=== PATIENT | female | born 1975 | race Hispanic/Latino ===

== ENCOUNTER 2018-03-06 10:08 | Day surgery (SDC) | payer BC, SELFPAY ==
[2018-03-06 11:11] LABS: Absolute Lymphocytes (CBC) 4.3 K/uL (0.7-4.9); Absolute Monocytes 0.7 K/uL (0.1-1.3); Absolute Neutrophil 7.9 K/uL (1.8-8.0); Basophils % 0.3 % (0-1.3); Eosinophils % 0.7 % (0-4.4); Lymphocytes % 32.7 % (15.3-44.8); MCH 30.4 pg (27.0-35.0); MCV 88.4 fL (80-100); MPV 8.4 fL (7.6-11.3); Monocytes % 5.5 % (3.3-12.3); RBC Red Blood Cell Count 4.64 M/uL (3.86-4.86)
[2018-03-06 11:25] LABS: ALT/SGPT 86 U/L (12-78); AST/SGOT 40 U/L (15-37); Albumin 3.2 g/dL (3.4-5.0); Alkaline Phosphatase 111 U/L (45-117); Amylase Level 78 U/L (25-115); BUN Blood Urea Nitrogen 8 mg/dL (7-18); Bicarbonate 29 mmol/L (21-32); Bilirubin Direct < 0.1 mg/dL (0-0.2); Bilirubin Total 0.3 mg/dL (0.2-1.0); Glucose Level 101 mg/dL (74-106); Lipase 140 U/L (73-393); Potassium 3.8 mmol/L (3.5-5.1); Protein, Total 7.6 g/dL (6.4-8.2); Sodium Level 140 mmol/L (136-145)
[2018-03-06] MEDS ORDERED: PIPER/TAZO/NS 3.375gm 3.375 GM/100 ML BAG ONE (11:34)
--- NOTE | 2018-03-06 11:40 | EDPHYS ---
Physician Documentation [facility] Name: Ashley Rivers Age: 42 yrs Sex: Female : 1975 Arrival Date: 03/06/2018 Time: 10:13 Bed 15 Private MD: out of town, doctor ED Physician Mo Pierson HPI: 03/06 11:24 This 42 yrs old Female presents to ER via Ambulatory with complaints of do Abscess. 11:24 The patient presents with an abscess of the left upper quadrant and left lower do quadrant, The patient presents with cellulitis of the left upper quadrant and left lower quadrant, the patient presents with a swollen area of the left upper quadrant and left lower quadrant. Description: The affected area is moderate sized, confluent, erythematous. Onset: The symptoms/episode began/occurred 2 day(s) ago. Possible cause(s): unknown. Associated signs and symptoms: The patient has no apparent associated signs or symptoms. Modifying factors: the symptoms are alleviated by nothing, the symptoms are aggravated by pressure. Severity of symptoms: At their worst the symptoms were moderate, in the emergency department the symptoms are actually worse. The patient has not experienced similar symptoms in the past. 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 tw2 Historical: - Allergies: 12:36 No Known Allergies; tw2 - Home Meds: 12:36 None [Active]; tw2 - PMHx: 12:36 None; tw2 - PSHx: 12:36 ; tw2 13:09 Cholecystectomy; tummy tuck; tw2 - Immunization history:: Adult Immunizations. - Family history:: not pertinent. - Social history:: Smoking status: Patient/guardian denies using tobacco. - Ebola Screening: : Patient denies travel to an Ebola-affected area in the 21 days before illness onset. ROS: 11:24 Constitutional: Negative for fever, chills, and weight loss, Eyes: Negative for injury, do pain, redness, and discharge, ENT: Negative for injury, pain, and discharge, Neck: Negative for injury, pain, and swelling, Cardiovascular: Negative for chest pain, palpitations, and edema, Respiratory: Negative for shortness of breath, cough, wheezing, and pleuritic chest pain, Back: Negative for injury and pain, : Negative for injury, bleeding, discharge, and swelling, MS/Extremity: Negative for injury and deformity, Skin: Negative for injury, rash, and discoloration, Neuro: Negative for headache, weakness, numbness, tingling, and seizure, Psych: Negative for depression, anxiety, suicide ideation, homicidal ideation, and hallucinations, Allergy/Immunology: Negative for hives, rash, and allergies, Endocrine: Negative for neck swelling, polydipsia, polyuria, polyphagia, and marked weight changes, Hematologic/Lymphatic: Negative for swollen nodes, abnormal bleeding, and unusual bruising. 11:24 Abdomen/GI: Positive for abdominal pain, abdominal distension, of the left upper quadrant and left lower quadrant, cellulitis ith 5x4 cm induration. Exam: 11:24 Constitutional: This is a well developed, well nourished patient who is awake, alert, do and in no acute distress. Head/Face: Normocephalic, atraumatic. Eyes: Pupils equal round and reactive to light, extra-ocular motions intact. Lids and lashes normal. Conjunctiva and sclera are non-icteric and not injected. Cornea within normal limits. Periorbital areas with no swelling, redness, or edema. ENT: Nares patent. No nasal discharge, no septal abnormalities noted. Tympanic membranes are normal and external auditory canals are clear. Oropharynx with no redness, swelling, or masses, exudates, or evidence of obstruction, uvula midline. Mucous membranes moist. Neck: Trachea midline, no thyromegaly or masses palpated, and no cervical lymphadenopathy. Supple, full range of motion without nuchal rigidity, or vertebral point tenderness. No Meningismus. Chest/axilla: Normal chest wall appearance and motion. Nontender with no deformity. No lesions are appreciated. Cardiovascular: Regular rate and rhythm with a normal S1 and S2. No gallops, murmurs, or rubs. Normal PMI, no JVD. No pulse deficits. Respiratory: Lungs have equal breath sounds bilaterally, clear to auscultation and percussion. No rales, rhonchi or wheezes noted. No increased work of breathing, no retractions or nasal flaring. Back: No spinal tenderness. No costovertebral tenderness. Full range of motion. Female : Normal external genitalia. MS/ Extremity: Pulses equal, no cyanosis. Neurovascular intact. Full, normal range of motion. Neuro: Awake and alert, GCS 15, oriented to person, place, time, and situation. Cranial nerves II-XII grossly intact. Motor strength 5/5 in all extremities. Sensory grossly intact. Cerebellar exam normal. Normal gait. Psych: Awake, alert, with orientation to person, place and time. Behavior, mood, and affect are within normal limits. 11:24 Abdomen/GI: Inspection: distension, Bowel sounds: normal, Palpation: moderate abdominal tenderness, in the left upper quadrant and left lower quadrant, Liver: no appreciated palpable abnormalities, Hernia: not appreciated, red tender, indurated. Vital Signs: 10:25 BP 139 / 89; Pulse 97; Resp 17; Temp 97.7(O); Pulse Ox 100% on R/A; Weight 95.25 kg tw2 (R); Height 5 ft. 2 in. (157.48 cm); Pain 0/10; 11:12 BP 139 / 92; Pulse 91; Resp 18; Pulse Ox 99% on R/A; dh3 12:35 BP 129 / 84; Pulse 96; Resp 17; Pulse Ox 98% on R/A; tw2 13:32 BP 132 / 92; Pulse 83; Resp 17; Pulse Ox 100% on R/A; tw2 10:25 Body Mass Index 38.41 (95.25 kg, 157.48 cm) tw2 MDM: 10:[address] [facility] 11:31 Data reviewed: vital signs, nurses notes, lab test result(s), EKG, radiologic studies, [facility] CT scan, plain films. 03/06 10:51 Order name: Amylase, Serum; Complete Time: 11:33 03/06 10:51 Order name: Basic Metabolic Panel; Complete Time: 11:33 03/06 10:51 Order name: CBC with Diff; Complete Time: 11:33 tw03/06 10:51 Order name: Creatinine for Radiology; Complete Time: 11:33 2 03/06 10:51 Order name: Hepatic Function; Complete Time: 11:33 03/06 10:51 Order name: Lipase; Complete Time: 11:33 03/06 10:51 Order name: Urine Microscopic Only; Complete Time: 12:31 03/06 11:19 Order name: Troponin I; Complete Time: 12:31 2 03/06 11:21 Order name: Urine Dipstick--Ancillary (enter results); Complete Time: 12:31 mb4 03/06 11:21 Order name: Urine --Ancillary (enter results); Complete Time: 12:31 mb4 03/06 11:45 Order name: Basic Metabolic Panel [facility] 03/06 11:45 Order name: Basic Metabolic Panel [facility] 03/06 11:45 Order name: CBC with Automated Diff [facility] 03/06 11:45 Order name: CBC with Automated Diff [facility] 03/06 10:51 Order name: Urine Test (obtain specimen); Complete Time: 11:10 tw2 03/06 10:51 Order name: IV Saline Lock; Complete Time: 10:51 tw2 03/06 10:51 Order name: Labs collected and sent; Complete Time: 10:51 tw2 03/06 10:51 Order name: Urine Dipstick-Ancillary (obtain specimen); Complete Time: 11:10 tw2 03/06 11:20 Order name: CT Abd/Pelvis - W/Contrast [facility] 03/06 11:28 Order name: EKG; Complete Time: 11:29 tw2 03/06 11:28 Order name: EKG - Nurse/Tech; Complete Time: 12:35 tw2 03/06 11:32 Order name: Chest Single View XRAY [facility] 03/06 11:45 Order name: NPO [facility] 03/06 12:29 Order name: RAD; Complete Time: 12:31 EDMO 03/06 13:11 Order name: CT; Complete Time: 13:51 EDMS Administered Medications: 11:57 Drug: Zosyn 3.375 grams Route: IVPB; Infused Over: 60 mins; Site: right antecubital; tw2 13:10 Follow up: Response: No adverse reaction; IV Status: Completed infusion tw2 Disposition: 03/06/18 11:39 Hospitalization ordered by Anselmo Villaseñor for Observation. Preliminary diagnosis are Cutaneous abscess of abdominal wall, Cellulitis of abdominal wall, Obesity, unspecified. - Bed requested for Telemetry/MedSurg (observation). - Status is Observation. tw2 - Condition is Stable. - Problem is new. - Symptoms have improved. UTI on Admission? No Signatures: Dispatcher [employer] EDMO [place], Lori, RN RN dw Dangelo, Mo, MD MD do Gallego, Swapna, RN RN tw2 Corrections: (The following items were deleted from the chart) 11:45 11:39 Hospitalization Ordered by Anselmo Villaseñor MD for Observation. Preliminary do diagnosis is Cutaneous abscess of abdominal wall; Cellulitis of abdominal wall. Bed requested for Telemetry/MedSurg (observation). Status is Observation. Condition is Stable. Problem is new. Symptoms have improved. UTI on Admission? No. do 12:47 11:45 03/06/2018 11:39 Hospitalization Ordered by Anselmo Villaseñor MD for Observation. dw Preliminary diagnosis is Cutaneous abscess of abdominal wall; Cellulitis of abdominal wall; Obesity, unspecified. Bed requested for Telemetry/MedSurg (observation). Status is Observation. Condition is Stable. Problem is new. Symptoms have improved. UTI on Admission? No. do 13:39 12:47 03/06/2018 11:39 Hospitalization Ordered by Anselmo Villaseñor MD for Observation. tw2 Preliminary diagnosis is Cutaneous abscess of abdominal wall; Cellulitis of abdominal wall; Obesity, unspecified. Bed requested for Telemetry/MedSurg (observation). Status is Observation. Condition is Stable. Problem is new. Symptoms have improved. UTI on Admission? No. dw 14:55 13:39 03/06/2018 11:39 Hospitalization Ordered by Anselmo Villaseñor MD for Observation. tw2 Preliminary diagnosis is Cutaneous abscess of abdominal wall; Cellulitis of abdominal wall; Obesity, unspecified. Bed requested for Telemetry/MedSurg (observation). Status is Observation. Condition is Stable. Problem is new. Symptoms have improved. UTI on Admission? No. tw2
--- NOTE | 2018-03-06 11:40 | ER ---
Nurse's Notes [facility] Name: Ashley Rivers Age: 42 yrs Sex: Female : 1975 Arrival Date: 03/06/2018 Time: 10:13 Bed 15 Private MD: out of town, doctor Diagnosis: Cutaneous abscess of abdominal wall;Cellulitis of abdominal wall;Obesity, unspecified Presentation: 03/06 10:24 Presenting complaint: Patient states: I have an abscess on the inside of my stomach for tw2 about a month now, i finished all my abx but its not better. Transition of care: patient was not received from another setting of care. Onset of symptoms was March 06, 2018. Risk Assessment: Do you want to hurt yourself or someone else? Patient reports no desire to harm self or others. Initial Sepsis Screen: Does the patient meet any 2 criteria? No. Patient's initial sepsis screen is negative. Does the patient have a suspected source of infection? No. Patient's initial sepsis screen is negative. Care prior to arrival: None. 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 tw2 Historical: - Allergies: 12:36 No Known Allergies; tw2 - Home Meds: 12:36 None [Active]; tw2 - PMHx: 12:36 None; tw2 - PSHx: 12:36 ; tw2 13:09 Cholecystectomy; tummy tuck; tw2 - Immunization history:: Adult Immunizations. - Family history:: not pertinent. - Social history:: Smoking status: Patient/guardian denies using tobacco. - Ebola Screening: : Patient denies travel to an Ebola-affected area in the 21 days before illness onset. Screenin:37 Abuse screen: Denies threats or abuse. Nutritional screening: No deficits noted. tw2 Tuberculosis screening: No symptoms or risk factors identified. Fall Risk None identified. Assessment: 10:20 General: Appears in no apparent distress. well groomed, Behavior is calm, cooperative, tw2 appropriate for age. Pain: Denies pain. Neuro: Level of Consciousness is awake, alert, obeys commands, Oriented to person, place, time, situation. Cardiovascular: Denies chest pain, shortness of breath, Heart tones S1 S2 Patient's skin is warm and dry. Respiratory: Airway is patent Respiratory effort is even, unlabored, Respiratory pattern is regular, symmetrical, Breath sounds are clear bilaterally. GI: Abdomen is round non-distended, obese, Bowel sounds present X 4 quads. Reports abscess in stomach Patient currently denies nausea, pain, vomiting. : No signs and/or symptoms were reported regarding the genitourinary system. EENT: No signs and/or symptoms were reported regarding the EENT system. Derm: Skin is intact, is healthy with good turgor, Skin temperature is warm Abscess located on epigastric area, right upper quadrant and left upper quadrant has no drainage, is hot to touch, is red, is raised. Musculoskeletal: Circulation, motion, and sensation intact. Range of motion: intact in all extremities. 11:20 Reassessment: Patient appears in no apparent distress at this time. No changes from tw2 previously documented assessment. Patient and/or family updated on plan of care and expected duration. Pain level reassessed. Patient is alert, oriented x 3, equal unlabored respirations, skin warm/dry/pink. 12:36 Reassessment: Patient appears in no apparent distress at this time. No changes from tw2 previously documented assessment. Patient and/or family updated on plan of care and expected duration. Pain level reassessed. Patient is alert, oriented x 3, equal unlabored respirations, skin warm/dry/pink. 13:33 Reassessment: Patient appears in no apparent distress at this time. No changes from tw2 previously documented assessment. Patient and/or family updated on plan of care and expected duration. Pain level reassessed. Patient is alert, oriented x 3, equal unlabored respirations, skin warm/dry/pink. Vital Signs: 10:25 BP 139 / 89; Pulse 97; Resp 17; Temp 97.7(O); Pulse Ox 100% on R/A; Weight 95.25 kg tw2 (R); Height 5 ft. 2 in. (157.48 cm); Pain 0/10; 11:12 BP 139 / 92; Pulse 91; Resp 18; Pulse Ox 99% on R/A; dh3 12:35 BP 129 / 84; Pulse 96; Resp 17; Pulse Ox 98% on R/A; tw2 13:32 BP 132 / 92; Pulse 83; Resp 17; Pulse Ox 100% on R/A; tw2 10:25 Body Mass Index 38.41 (95.25 kg, 157.48 cm) tw2 ED Course: 10:13 Patient arrived in ED. mr 10:13 out of town, doctor is Private Physician. mr 10:20 Placed in gown. Bed in low position. Pulse ox on. NIBP on. Warm blanket given. tw2 10:21 Mo Pierson MD is Attending Physician. [facility] 10:24 Swapna Gallego RN is Primary Nurse. tw2 10:25 Triage completed. tw2 10:25 Arm band placed on. tw2 11:00 No provider procedures requiring assistance completed. Inserted saline lock: 22 gauge tw2 in right antecubital area, using aseptic technique. Blood collected. 11:10 Urine collected: clean catch specimen, cloudy. [facility] 11:26 Troponin I Sent. tw2 11:37 Anselmo Villaseñor MD is Hospitalizing Provider. [facility] 12:19 X-ray completed. Portable x-ray completed in exam room. Patient tolerated procedure ag1 well. 12:[address] 2 12:[address] completed. Patient tolerated procedure well. Patient moved back from CT. 2 12:56 Awaiting: attempted to call report, was told the nurse is at lunch at this time and tw2 would call me back. 13:28 Patient admitted, IV remains in place. tw2 13:40 Awaiting surgery, Awaiting: OR will come get her in 30 minutues. tw2 Administered Medications: 11:57 Drug: Zosyn 3.375 grams Route: IVPB; Infused Over: 60 mins; Site: right antecubital; tw2 13:10 Follow up: Response: No adverse reaction; IV Status: Completed infusion tw2 Outcome: 11:39 Decision to Hospitalize by Provider. [facility] 13:27 Condition: stable tw2 13:27 Instructed on the need for admit. 13:39 Patient left the ED. tw2 13:40 Admitted to OR tw2 13:40 Instructed on 13:41 Condition: report called to kali Abreu on 2nd floor tw2 14:55 Patient left the ED. tw2 Signatures: Mo Pierson MD MD cha Rivera, Maria mr GarberLisa ag1 Swapna Gallego RN RN tw2 Daxa Marks 2 Mena Law 3 Corrections: (The following items were deleted from the chart) 13:41 13:27 Admitted to Med/surg accompanied by tech, room 206, with chart, Report called to alexia abreu rn tw2
[2018-03-06] MEDS ORDERED: ACETAMINOPHEN 500 MG TAB PO PRN (11:43)
[2018-03-06] MEDS ORDERED: ONDANSETRON 4 MG/2 ML VIAL IV PRN ×2 (11:43→17:12)
[2018-03-06] MEDS ORDERED: MORPHINE 4 MG/ML SYR IV PRN (11:43)
[2018-03-06] MEDS ORDERED: NA CHLORIDE 0.9% 1,000 ML IV SCH (12:00)
[2018-03-06 12:07] LABS: Urine Bacteria <20 /HPF (<20); Urine RBC <5 /HPF (NONE SEEN)
[2018-03-06 12:07] LABS: Urine Blood NEGATIVE (NEG); Urine Glucose NEGATIVE (NEG); Urine Protein NEGATIVE (NEG); Urine pH 6.5 (5.0-7.0)
[2018-03-06 12:08] LABS: Urine Culture Reflex Order NOT NEEDED
--- NOTE | 2018-03-06 12:28 | RAD REPORT ---
EXAM DESCRIPTION: RAD - Chest Single View - 03/06/2018 12:20 pm CLINICAL HISTORY: COUGH Chest pain. COMPARISON: CHEST PA AND LAT 2 VIEW dated 05/28/2010; CHEST SINGLE VIEW dated 04/16/2010; CHEST PA AN D LAT 2 VIEW dated 04/15/2010; CHEST PA AND LAT 2 VIEW dated 04/15/2010 FINDINGS: Portable technique limits examination quality. The lungs are grossly clear. The heart is normal in size. No displaced fractures. IMPRESSION: No acute intrathoracic process suspected.
--- NOTE | 2018-03-06 13:11 | RAD REPORT ---
EXAM DESCRIPTION: CTAbdomen Pelvis W Contrast - 03/06/2018 12:57 pm CLINICAL HISTORY: Abdominal pain. abscess COMPARISON: No comparisons TECHNIQUE: Biphasic CT imaging of the abdomen and pelvis was performed with 100 ml non-ionic IV cont rast. All CT scans are performed using dose optimization technique as appropriate and may include automated exposure control or mA/KV adjustment according to patient size. FINDINGS: The lung bases are clear.Cholecystectomy. The liver, spleen, pancreas, adrenal glands and kidneys are within normal limits. No bowel obstruction, free air, free fluid or intra-abdominal abscess. There are two irregular subcut aneous abscess present along the midline anterior abdominal wall subcutaneous fat. Both appear above the umbilicus; the inferior abscess is approximately 2.7 cm above the umbilicus and just to the right of midline and measures 4.1 x 3.9 cm. The more superior abscess is 5.2 cm above the umbilicus along the midline and measures 4.6 x 3.2 cm. A small tract appears to connect these two abscesses just to t he right of midline. The appendix is normal. No evidence of significant lymphadenopathy. No suspicious bony findings. IMPRESSION: Two relatively small thick walled subcutaneous abscess is are present in the anterior ab dominal wall subcutaneous fat along the midline as detailed. No intra-abdominal extension is seen.
[2018-03-06] MEDS ORDERED: NA CHLORIDE 0.9% 1,000 ML ONE (15:22)
[2018-03-06] MEDS ORDERED: BUPIVACAINE 0.5% PF 10 ML VIAL ONE (16:20)
[2018-03-06] MEDS ORDERED: FENTANYL CITR 100 MCG/2 ML ONE (16:30)
[2018-03-06] MEDS ORDERED: LIDOCAINE 2% MPF 5 ML VIAL ONE (16:30)
[2018-03-06] MEDS ORDERED: ONDANSETRON HCL 40 MG/20 ML VIAL ONE (16:30)
[2018-03-06] MEDS ORDERED: KETOROLAC 30 MG/ML INJ ONE (16:30)
[2018-03-06] MEDS ORDERED: PROPOFOL 200 MG/20 ML VIAL IV ONE (16:30)
[2018-03-06] MEDS ORDERED: DEXAMETHASONE 10 MG/ML VIAL ONE (16:31)
--- NOTE | 2018-03-06 16:34 | P.HP ---
Date of Service: 03/06/18 PC: This 42-year-old female presents emergency room with severe abdominal pain for diagnosis and treatment. HPC: Patient is noticed since he had some pain in her anterior abdominal wall for the last week. Having seen at another facility and was started on some antibiotics. However she has noticed increasing pain and discomfort as well as redness and and warmth in the area. She came to the ER for evaluation PMH: Borderline diabetes PSHx: Previous breast augmentation, tummy tuck SOC: No known allergies, SYS REVIEW: No cough, wheeze, shortness of breath. No chest pain or palpitations. O/E awake alert stable HEENT: Within normal limits Chest: Chest movement equal bilateral ABD: Has an area about of 4 fingers breath above her umbilicus which is red and erythematous. LOCO: Intact DATA: CT scan demonstrates abscess in the anterior abdominal wall x2 IMPRESSION: Abscess of the anterior PLAN: I will to the operating room for incision, drainage, sharp debridement of this large abscess. The risks of this procedure have been discussed. The possibility of bleeding, infection, need for further surgeries and recurrence were outlined. She understands and wants us to proceed. Scar formation was also outlined.
--- NOTE | 2018-03-06 16:59 | P.OP ---
Preoperative diagnosis: Abscess of the anterior abdominal wall x2 Postoperative diagnosis: The same Primary procedure: Incision, drainage, and debridement of anterior abdominal wall abscess x2 Anesthesia: General Estimated blood loss: Less than 10 cc Specimen: None sent Operative Technique: The patient brought the operating room and placed supine on the table general anesthesia, the area of the abdomen was prepped with a DuraPrep solution, and she was draped in usual aseptic manner. Over the area mesh for some on fluctuance, 0.25% Marcaine was injected into this area. A skin incision was now made. This brought down through the skin and subcutaneous tissue. We encounter a large abscess cavity. The material was aspirated from the cavity. There was a secondary 1 that was entered using a hemostat and the 2 cavities were now connected together. The wound was sharply debrided with 11 blade. At this point a 2. Nylon was placed into the wound and brought out more superiorly to keep this whole open and draining during the postoperative period. We also placed a secondary suture of ethyl line so that this wound may be pulled together in a few days time once the infection is under control. At the end of the procedure she was in a stable condition when sent to the recovery room. Needle sponge instrument count were correct. Complications: None Drain(s): Other (2. Nylon) Transferred to: Recovery Room Condition: Good
[2018-03-06] MEDS ORDERED: CODEINE 30MG/APAP 300MG TAB PO PRN (17:12)
[2018-03-06] MEDS ORDERED: PIPER/TAZO/NS 3.375gm 3.375 GM/100 ML BAG IVPB SCH (20:00)
--- NOTE | 2018-03-07 10:40 | EKG ---
Test Date: 2018-03-06 Test Time: 11:41:55 Case Assembler: MARCUS MEASUREMENT RESULTS: Intervals: Rate: 75 MD: 148 QRSD: 90 QT: 382 QTc: 426 Goodwin: P: 19 MD: 148 QRS: 22 T: 26 INTERPRETIVE STATEMENTS: Normal sinus rhythm Cannot rule out Anterior infarct, age undetermined Abnormal ECG No previous ECG available for comparison Electronically Signed On 03-07-18 10:39:27 CDT by Nelson Lees
== END 2018-03-06 18:06 | disposition home or self-care (01) ==
LOC: ER 10:08 → UNDOADMOB 11:41 → ERHOLD 11:41 → OR 12:55 → ERHOLD 13:28 → 2ND 13:28 → OR 18:06
PROVIDERS: ATTEND Surgery
PROC: 0H97XZZ Drainage of Abdomen Skin, External Approach (ICD-10-PCS; principal; 2018-03-06 16:30)
DX: L02.211 Cutaneous abscess of abdominal wall (principal)
CPT/HCPCS: 36415; 71045; 74177; 80048; 80076; 81003; 81015; 81025; 82150; 83690; 84484; 85025; 93005; 96365; 99285; J1100; J2405; J2543; J3010; J7030; Q9967

== ENCOUNTER 2018-11-19 06:35 | Day surgery (SDC) | payer BC ==
[2018-11-19 06:56] LABS: Specific Gravity 1.015 (1.005-1.030)
[2018-11-19] MEDS ORDERED: NA CHLORIDE 0.9% 1,000 ML ONE ×2 (07:01→08:13)
--- NOTE | 2018-11-19 07:14 | P.HP ---
Date of Service: 11/19/18 PC: This 42-year-old female presents for exploration of chronic wound in the upper abdomen. HPC: Patient had a tummy tuck. Since then she has had persistent areas in the upper portion of her abdomen that faster up and drain. This 1 area in particular has had recurrent abscesses. PMH: Diabetes PSHx: Previous tummy tuck SOC: No known allergies SYS REVIEW: No cough, wheeze, shortness of breath. No chest pain or palpitations. Denies any urinary complaints O/E awake alert stable HEENT: Within normal Chest: Clear ABD: Soft, in the upper abdomen there is an area approximately 1.5 cm in size. There appeared to be a slight mass underneath this area. LOCO: Intact DATA: Within normal limits IMPRESSION: Mass in the upper abdomen with recurrent abscess suspect possible stitch abscess PLAN: I will take her to the operating room for exploration of this wound. The risks of this procedure have been discussed. The possibility of bleeding, infection, recurrence and scar formation were outlined. She understands and wants us to proceed. SYS REVIEW: O/E HEENT: Chest: ABD: LOCO: DATA: IMPRESSION: PLAN:
[2018-11-19] MEDS ORDERED: BUPIVACAINE 0.5% PF 10 ML VIAL ONE (07:17)
[2018-11-19] MEDS ORDERED: PROPOFOL 200 MG/20 ML VIAL IV ONE (07:19)
[2018-11-19] MEDS ORDERED: ROCURONIUM 50 MG/5 ML VIAL IV ONE (07:22)
[2018-11-19] MEDS ORDERED: FENTANYL CITR 100 MCG/2 ML ONE (07:22)
[2018-11-19] MEDS ORDERED: MIDAZOLAM HCL 2 MG/2 ML INJ ONE (07:22)
[2018-11-19] MEDS ORDERED: LIDOCAINE 2% MPF 5 ML VIAL ONE (07:22)
[2018-11-19] MEDS ORDERED: DEXAMETHASONE 10 MG/ML VIAL ONE (07:40)
[2018-11-19] MEDS ORDERED: ONDANSETRON 4 MG/2 ML VIAL ONE (07:43)
--- NOTE | 2018-11-19 07:52 | P.OP ---
Preoperative diagnosis: Abdominal wall mass Postoperative diagnosis: Stitch abscess Primary procedure: Exploration of old surgical wound Secondary procedure: Wide excision of surgical scar and removal of suture Anesthesia: General Estimated blood loss: Less than 10 cc Specimen: Sent for histopathology Operative Technique: The patient brought the operating room and placed supine on the table. After the induction of adequate general endotracheal anesthesia, the area of the abdomen was prepped with a DuraPrep solution, she was draped in usual aseptic manner. An elliptical incision was then made around this old scar tissue see the center portion a small area that showed chronic drainage. This plug of tissue was removed from the anterior abdominal wall. At the base to was found to be eating capsulated P so olds permanent suture. This was excise. At this point the wound was inspected to ensure adequate hemostasis. It was approximated using interrupted sutures of PDS. [place] were then used to approximate the skin. At the end of the procedure she was in a stable condition when sent to the recovery room. Needle sponge instrument count were correct. The anterior abdominal wall been injected with 0.25% Marcaine to allow for adequate analgesia in the postoperative period. Complications: None Transferred to: Recovery Room Condition: Good
[2018-11-19] MEDS ORDERED: MEPERIDINE HCL 25 MG/0.5 ML ONE (08:24)
== END 2018-11-19 09:33 | disposition home or self-care (01) ==
LOC: OR 06:35
PROVIDERS: ATTEND Surgery
PROC: 0JB80ZZ Excision of Abdomen Subcutaneous Tissue and Fascia, Open Approach (ICD-10-PCS; principal; 2018-11-19 07:30)
DX: L02.211 Cutaneous abscess of abdominal wall (principal); M79.5 Residual foreign body in soft tissue; E11.9 Type 2 diabetes mellitus without complications
CPT/HCPCS: 81025; 82962; 88304; 88305; J1100; J2175; J2250; J2405; J2704; J3010; J7030